=== PATIENT | female | born 1995 | race African-American/Black ===

== ENCOUNTER 2016-12-05 13:58 | Emergency (ER) | payer SELFPAY ==
[2016-12-05] MEDS ORDERED: Albuterol Sulfate 1.25 MG/3 ML NEB ONE (14:12)
[2016-12-05] MEDS ORDERED: Dexamethasone 4 mg/ml Vial ONE (14:29)
[2016-12-05] MEDS ORDERED: AMOXicillin 250 MG CAP ONE (14:29)
== END 2016-12-05 15:04 | disposition home or self-care (01) ==
LOC: BURERS 13:58
DX: J06.9 Acute upper respiratory infection, unspecified (principal); J02.9 Acute pharyngitis, unspecified; J45.909 Unspecified asthma, uncomplicated
CPT/HCPCS: 94640; J1100

== ENCOUNTER 2017-01-03 18:10 | Emergency (ER) | payer SELFPAY ==
[2017-01-03] MEDS ORDERED: Amoxicillin 125 mg/5 ml Oral Suspension ONE (19:08)
[2017-01-03] MEDS ORDERED: Ibuprofen 800 MG TAB ONE (19:08)
== END 2017-01-03 19:25 | disposition home or self-care (01) ==
LOC: BURERS 18:10
DX: J02.9 Acute pharyngitis, unspecified (principal); J45.909 Unspecified asthma, uncomplicated
CPT/HCPCS: 87081; 87430; 99283

== ENCOUNTER 2017-01-13 18:39 | Emergency (ER) | payer SELFPAY ==
[2017-01-13] MEDS ORDERED: Ketorolac Tromethamine 30 MG/ML VIAL ONE (18:58)
[2017-01-13 19:05] LABS: #Basophils 0.1 thou/uL (0.0-0.2); #Eosinphils 0.1 thou/uL (0.0-0.7); #Lymphocytes 2.5 thou/uL (1.20-3.40); #Monocytes 0.5 thou/uL (0.11-0.59); %Basophils 0.9 % (0.0-1.0); %Eosinophils 1.6 % (0.0-10.0); %Lymphocytes 35.2 % (21.0-51.0); %Monocytes 6.8 % (0.0-10.0); %Neutrophils 55.5 % (42.0-75.0); Hemoglobin 9.7 g/dL (12.0-16.0); Mean Corpuscular HGB CONC 31.5 g/dL (32.0-36.0); Mean Corpuscular Hemoglobin 27.1 pg (27.0-31.0); Mean Corpuscular Volume 86.2 fl (81.0-99.0); Platelet Count 379 thou/uL (130-400); RBC Distribution Width 13.8 % (11.5-14.5); Red Blood Cell (RBC) Count 3.57 mill/uL (4.20-5.40); White Blood Cell (WBC) Count 7.2 thou/uL (4.8-10.8)
[2017-01-13 19:16] LABS: BHCG - Serum NEGATIVE (NEGATIVE); Pregs Control Background? CLEAR/WHITE (CLR/WHITE); Pregs Control Bar Appear? YES (CONTROL BAR)
[2017-01-13 19:18] LABS: ALT (SGPT) 11 U/L (0-55); AST (SGOT) 19 U/L (5-34); Albumin 3.7 g/dL (3.5-5.0); Alkaline Phosphatase 57 U/L (40-150); Anion Gap 13 mmol/L (10-20); BUN (Urea Nitrogen) 8 mg/dL (7.0-18.7); Bilirubin, Total 0.4 mg/dL (0.2-1.2); Calc. Creatinine Clearance 0 mL/min (70-130); Calcium 8.7 mg/dL (7.8-10.44); Carbon Dioxide 23 mmol/L (22-29); Chloride 106 mmol/L (98-107); Estimated GFR-MDRD Greater than 90; Globulin 3.6 g/dL (2.4-3.5); Glucose 86 mg/dL (70-105); Potassium 3.7 mmol/L (3.5-5.1); Protein, Total 7.3 g/dL (6.0-8.3); Sodium 138 mmol/L (136-145)
[2017-01-13 19:21] LABS: CKMB 3.1 ng/mL (0-6.6); Troponin I 0.012 ng/mL (< 0.028)
--- NOTE | 2017-01-13 20:23 | RAD ---
PORTABLE CHEST 01/13/17 Comparison is made with a 05/30/12 study. The portable technique and overlying soft tissues decrease the sensitivity of this study. The heart size remains normal. There is no vascular congestion, edema, or pleural effusion. No lobar infiltrat es were seen. The trachea is midline. IMPRESSION: No acute thoracic finding. POS: HOME
== END 2017-01-13 19:30 | disposition home or self-care (01) ==
LOC: BURERS 18:39
DX: R07.82 Intercostal pain (principal); J45.909 Unspecified asthma, uncomplicated
CPT/HCPCS: 36415; 71010; 80053; 82553; 84484; 84703; 85025; 93005; 96374; J1885

== ENCOUNTER 2017-02-15 21:46 | Emergency (ER) | payer SELFPAY ==
[2017-02-15] MEDS ORDERED: Ketorolac Tromethamine 30 MG/ML VIAL ONE (22:22)
[2017-02-15 22:31] LABS: Bilirubin Negative (Negative); Blood, Urine Negative (Negative); Clarity Hazy (Clear); Glucose, Urine (Dipstick) Negative (Negative); Leukocyte Negative (Negative); Nitrite Negative (Negative); Protein, Urine (Dipstick) Trace mg/dL (Neg-Trace); pH, Urine 7.5 (5.0-9.0)
[2017-02-15 23:02] LABS: #Basophils 0.1 thou/uL (0.0-0.2); #Eosinphils 0.2 thou/uL (0.0-0.7); #Lymphocytes 2.5 thou/uL (1.20-3.40); #Monocytes 0.5 thou/uL (0.11-0.59); #Neutrophils 5.9 thou/uL (1.40-6.50); %Basophils 0.7 % (0.0-1.0); %Eosinophils 2.1 % (0.0-10.0); %Lymphocytes 27.6 % (21.0-51.0); %Monocytes 5.4 % (0.0-10.0); %Neutrophils 64.2 % (42.0-75.0); Hemoglobin 10.5 g/dL (12.0-16.0); Mean Corpuscular HGB CONC 32.2 g/dL (32.0-36.0); Mean Corpuscular Hemoglobin 27.6 pg (27.0-31.0); Mean Corpuscular Volume 85.7 fl (81.0-99.0); Platelet Count 702 thou/uL (130-400); RBC Distribution Width 14.7 % (11.5-14.5); Red Blood Cell (RBC) Count 3.79 mill/uL (4.20-5.40); White Blood Cell (WBC) Count 9.2 thou/uL (4.8-10.8)
[2017-02-15 23:15] LABS: ALT (SGPT) 12 U/L (8-55); AST (SGOT) 20 U/L (5-34); Albumin 3.6 g/dL (3.5-5.0); Alkaline Phosphatase 57 U/L (40-150); Anion Gap 13 mmol/L (10-20); BUN (Urea Nitrogen) 9 mg/dL (7.0-18.7); Bilirubin, Total 0.2 mg/dL (0.2-1.2); CK (CPK) 894 U/L (29-168); Calc. Creatinine Clearance 0 mL/min (70-130); Calcium 8.8 mg/dL (7.8-10.44); Carbon Dioxide 23 mmol/L (22-29); Chloride 107 mmol/L (98-107); Estimated GFR-MDRD Greater than 90; Globulin 3.8 g/dL (2.4-3.5); Glucose 91 mg/dL (70-105); Potassium 3.8 mmol/L (3.5-5.1); Protein, Total 7.4 g/dL (6.0-8.3); Sodium 139 mmol/L (136-145)
== END 2017-02-16 00:28 | disposition home or self-care (01) ==
LOC: BURERS 21:46
DX: T67.2XXA Heat cramp, initial encounter (principal); R60.9 Edema, unspecified; J45.909 Unspecified asthma, uncomplicated; X58.XXXA Exposure to other specified factors, initial encounter
CPT/HCPCS: 80053; 81003; 82550; 85025; 85379; 96361; 96374; J1885

== ENCOUNTER 2017-03-17 16:39 | Outpatient (CLI) | payer MEDICAID, SELFPAY | END 2017-03-17 16:40 | disposition home or self-care (01) | LOC: HPCALD 16:39 | PROVIDERS: ATTEND Physician Assistant | DX: Z01.419 Encounter for gynecological examination (general) (routine) without abnormal findings (principal) | CPT/HCPCS: 87480; 87491; 87510; 87591; 87660 ==